=== PATIENT | male | born 1945 | race Caucasian/White ===

== ENCOUNTER 2016-10-06 11:11 | Emergency (ER) | payer MEDICARE, BC ==
[2016-10-06 12:20] VITALS: BP 152/63
--- NOTE | 2016-10-06 13:38 | UC ---
Respiratory Complaint HPI - HPI Summary HPI Summary: 71 Y/O male with C/O cough / congestion / dyspnea with exertion. Denies CP, diaphoresis, or nausea. Has been taking mucinex and using neb treatments. medications have been reviewed on this visit. - History of Current Complaint Chief Complaint: UCRespiratory Stated Complaint: COUGH ONGOING,CONGESTION Time Seen by Provider: 10/06/16 13:16 Hx Obtained From: Patient Onset/Duration: Gradual Onset, Lasting Weeks Timing: Constant Severity Initially: Mild Severity Currently: Moderate Pain Intensity: 0 Pain Scale Used: 0-10 Numeric Character: Cough: Productive Aggravating Factors: Exertion Alleviating Factors: Bronchodilator Associated Signs And Symptoms: Positive: Dyspnea, Fever - Risk Factors Pulmonary Embolism Risk Factors: Negative Cardiac Risk Factors: Smoking Pseudomonas Risk Factors: Chronic Lung Disease Tuberculosis Risk Factors: Negative - Allergies/Home Medications Allergies/Adverse Reactions: Allergies Allergy/AdvReac Type Severity Reaction Status Date / Time Latex Allergy Rash Verified 10/06/16 12:20 Home Medications: Home Medications Albuterol HFA INHALER* [Ventolin HFA Inhaler*] 2 puff INH Q4HR PRN 10/06/16 [ History Confirmed 10/06/16] Diphenhydramine HCl [Benadryl Allergy 25 MG CAP] 2 tab PO BEDTIME 10/06/16 [ History Confirmed 10/06/16] Fluticasone NASAL * [Flonase *] 1 spray NASAL DAILY 10/06/16 [History Confirmed 10/06/16] Multiple Vitamins W/ Minerals [Preservision Areds 2 + Mu] 1 tab PO BID 10/06/16 [History Confirmed 10/06/16] guaiFENesin ER TAB [Mucinex*] 1 tab PO BID 10/06/16 [History Confirmed 10/06/16] PMH/Surg Hx/FS Hx/Imm Hx Cardiovascular History Of: Reports: Hypertension Denies: Pacemaker/ICD Respiratory History Of: Reports: COPD, Asthma GI/ History Of: Reports: Kidney Stones - HX OF Psychological History Of: Reports: Anxiety - Surgical History Surgical History: None Surgery Procedure, Year, and Place: LITHOTRIPSY 2004 [facility] - Social History Alcohol Use: Rare Substance Use Type: None Smoking Status (MU): Former Smoker Length of Time of Smoking/Using Tobacco: 40 YRS Have You Smoked in the Last Year: No When Did the Patient Quit Smoking/Using Tobacco: 2004 Review of Systems Constitutional: Fever Skin: Negative Eyes: Negative ENT: Negative Respiratory: Shortness Of Breath, Cough Cardiovascular: Negative Gastrointestinal: Negative Genitourinary: Negative Motor: Negative Neurovascular: Negative Musculoskeletal: Negative Neurological: Negative Psychological: Negative All Other Systems Reviewed And Are Negative: Yes Physical Exam Triage Information Reviewed: Yes Appearance: Well-Appearing Vital Signs: Initial Vital Signs Temp 98.4 F 10/06/16 12:15 Pulse 89 10/06/16 12:15 Resp 18 10/06/16 12:15 BP 152/63 10/06/16 12:15 Pulse Ox 94 10/06/16 12:15 Vital Signs Reviewed: Yes Eye Exam: Normal ENT Exam: Normal Neck exam: Normal Neck: Positive: Nontender Respiratory Exam: Other Respiratory: Positive: Rhonchi Cardiovascular Exam: Normal Cardiovascular: Positive: RRR Abdominal Exam: Normal Abdomen Description: Positive: Nontender, Soft Bowel Sounds: Positive: Present Musculoskeletal Exam: Normal Neurological Exam: Normal Neurological: Positive: Alert Psychological Exam: Normal Skin Exam: Normal UC Diagnostic Evaluation - Laboratory O2 Sat by Pulse Oximetry: 94 Respiratory Course/Dx - Differential Dx/Diagnosis Differential Diagnosis/HQI/PQRI: Exacerbation Of COPD, Lower Resp Infection Provider Diagnoses: COPD Exacerbation Discharge - Discharge Plan Condition: Stable Disposition: HOME Patient Education Materials: COPD (Chronic Obstructive Pulmonary Disease) (ED) , Chronic Lung Disease and Infection Prevention (ED) Referrals: Bertin Estrada DO [Primary Care Provider] - Estelita HOLDER,Julio Schrader [Medical Doctor] - Additional Instructions: Please take prednisone as directed. If symptoms do not improve with medication or have fevers, increasing shortness of breath return to walk in or ER. 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
--- NOTE | 2016-10-06 13:59 | RAD ---
INDICATION: Cough and congestion COMPARISON: October 11, 2014 TECHNIQUE: PA and lateral dual-energy views were obtained. FINDINGS: Bones/Soft Tissues: There are no acute bony findings. There are multiple old right-sided rib fractures Cardiomediastinal: The cardiomediastinal silhouette is normal. Lungs: There are no focal infiltrates. There is mild coarsening of the interstitium compatible with mild chronic change. Pleura: There are no pleural effusions. Other: None IMPRESSION: NO ACTIVE DISEASE.
== END 2016-10-06 14:39 | disposition home or self-care (01) ==
LOC: UCEAST 11:11
DX: J44.1 Chronic obstructive pulmonary disease with (acute) exacerbation (principal); Z87.891 Personal history of nicotine dependence
CPT/HCPCS: 71020; 99212; G0463

== ENCOUNTER 2017-06-07 11:11 | Emergency (ER) | payer MEDICARE, BC ==
[2017-06-07 12:11] VITALS: BP 151/60
[2017-06-07] MEDS ORDERED: Albuterol 2.5 MG/3 ML NEB.SOL* (0.083%) INH ONE (13:07)
[2017-06-07] MEDS ORDERED: predniSONE TAB* 20 MG PO ONE (13:08)
--- NOTE | 2017-06-07 13:25 | UC ---
Respiratory Complaint HPI - HPI Summary HPI Summary: c/o wheezing, cough with discolored phlegm and fever for the past 6 days. Also states he has poor apetite since onset of symptoms with scant loose stools. Denies vomiting. - History of Current Complaint Chief Complaint: UCRespiratory Stated Complaint: COUGH, FEVER Time Seen by Provider: 06/07/17 12:52 Hx Obtained From: Patient Onset/Duration: Gradual Onset Timing: Constant Severity Initially: Mild Severity Currently: Moderate Character: Cough: Productive, Sputum Description: - pauluy Alleviating Factors: Bronchodilator Associated Signs And Symptoms: Positive: Wheezing - Risk Factors Pulmonary Embolism Risk Factors: Negative Cardiac Risk Factors: Negative Pseudomonas Risk Factors: Negative Tuberculosis Risk Factors: Negative - Allergies/Home Medications Allergies/Adverse Reactions: Allergies Allergy/AdvReac Type Severity Reaction Status Date / Time Latex Allergy Rash Verified 10/06/16 12:20 Home Medications: Home Medications Albuterol 2.5MG/3ML (0.083%)* [Ventolin 2.5 MG/3 ML NEB.BUFFY*] 2.5 mg INH Q4H [History Confirmed 06/07/17] Fluticasone Furoate-Vilanterol [Breo Ellipta 200-25 Mcg/INH] 1 inh IN 06/07/17 [ History] PMH/Surg Hx/FS Hx/Imm Hx Previously Healthy: Yes Endocrine History: Dyslipidemia Respiratory History: COPD, Asthma - Surgical History Surgical History: None Surgery Procedure, Year, and Place: LITHOTRIPSY 2004 [facility] - Social History Alcohol Use: Rare Substance Use Type: None Smoking Status (MU): Former Smoker Length of Time of Smoking/Using Tobacco: 40 YRS Have You Smoked in the Last Year: No When Did the Patient Quit Smoking/Using Tobacco: 2004 Review of Systems Constitutional: Fever Respiratory: Shortness Of Breath, Cough All Other Systems Reviewed And Are Negative: Yes Physical Exam Triage Information Reviewed: Yes Appearance: Ill-Appearing Vital Signs: Initial Vital Signs Temp 101.0 F 06/07/17 12:04 Pulse 116 06/07/17 12:04 Resp 22 06/07/17 12:04 BP 151/60 06/07/17 12:04 Pulse Ox 85 06/07/17 12:04 Vital Signs Reviewed: Yes Eye Exam: Normal ENT Exam: Normal Neck exam: Normal Respiratory: Positive: Rhonchi, Wheezing Cardiovascular Exam: Normal Abdominal Exam: Normal Musculoskeletal: Positive: No Edema Diagnostic Evaluation - Laboratory O2 Sat by Pulse Oximetry: 85 Respiratory Course/Dx - Course Course Of Treatment: nebulization with albuterol 2.5cc 0.083% and prednisone 60mg po x1 at improved symptoms. COntinue medications as prescribed, start antibiotic for 10 days and f/u with PCP - Differential Dx/Diagnosis Provider Diagnoses: COPD/asthma. Acute Bronchitis Discharge - Discharge Plan Condition: Stable Disposition: HOME Patient Education Materials: Wheezing (ED), Acute Bronchitis (ED) Referrals: Bertin Estrada DO [Primary Care Provider] -
== END 2017-06-07 13:54 | disposition home or self-care (01) ==
LOC: UCEAST 11:11
DX: J44.9 Chronic obstructive pulmonary disease, unspecified (principal); J20.9 Acute bronchitis, unspecified; Z91.040 Latex allergy status; E78.5 Hyperlipidemia, unspecified; Z87.891 Personal history of nicotine dependence
CPT/HCPCS: 99212; G0463; J7512

== ENCOUNTER 2019-04-09 05:49 | Day surgery (SDC) | payer MEDICARE, BC ==
[~2019-04-09 05:49] MED LIST: Buffered Lidocaine 1% SYRIN* 1 ML/SYRINGE INTRADERM ONE
[2019-04-09] MEDS ORDERED: Acetaminophen TAB* 325 MG PO ONE (06:00)
[2019-04-09] MEDS ORDERED: Lactated Ringers 1000 ML Bag* 1,000 ML IV SCH (06:00)
[2019-04-09] MEDS ORDERED: Famotidine IV* 10 MG/ML 2 ML (20 mg) IV ONE (06:00)
[2019-04-09] MEDS ORDERED: ceFAZolin 2 GM in NS PREMIX(*) 2 GM/100 ML BAG IVPB ONE (06:03)
[2019-04-09] MEDS ORDERED: Acetaminophen TAB* 325 MG ONE (06:03)
[2019-04-09] MEDS ORDERED: Famotidine IV* 10 MG/ML 2 ML (20 mg) ONE (06:03)
[2019-04-09] MEDS ORDERED: Bupivacaine 0.25% SDV PF* 10 ML VIAL INJ ONE (07:10)
[2019-04-09] MEDS ORDERED: fentaNYL* 50 MCG/ML 2 ML VIAL (100 MCG VIAL) ONE (07:25)
[2019-04-09] MEDS ORDERED: Midazolam* 1 MG/ML 2 ML VIAL (2 MG) ONE (07:25)
[2019-04-09] MEDS ORDERED: Lidocaine 1% INJ* 10 MG/ML 30 ML SDV ONE (07:30)
[2019-04-09] MEDS ORDERED: Ketorolac INJ* 30 MG/ML 1 ML VIAL ONE (07:39)
[2019-04-09] MEDS ORDERED: Ondansetron INJ* 2 MG/ML VIAL ONE (07:39)
[2019-04-09] MEDS ORDERED: Lidocaine 2% PF * 5 ML VIAL ONE (07:39)
[2019-04-09] MEDS ORDERED: Propofol* 10 MG/ML 20 ML BTL ONE ×2 (07:39)
[2019-04-09] MEDS ORDERED: KETAMINE HCL* 50 MG/ML 10 ML VIAL ONE (07:40)
[2019-04-09] MEDS ORDERED: HYDROcodone/ACETAMIN 5-325 MG* 1 TAB PO PRN (08:08)
[2019-04-09] MEDS ORDERED: Levalbuterol 0.63MG/3ML NEB* UNIT OF USE INH PRN (08:08)
[2019-04-09] MEDS ORDERED: Ondansetron INJ* 2 MG/ML VIAL IV PRN (08:08)
[2019-04-09] MEDS ORDERED: Naloxone* 0.4 MG/ML 1 ML VIAL IV PRN (08:08)
[2019-04-09] MEDS ORDERED: DiMENhydriNATE IV* 50 MG/ML VIAL IV PUSH PRN (08:08)
[2019-04-09] MEDS ORDERED: fentaNYL* 50 MCG/ML 2 ML VIAL (100 MCG VIAL) IV PRN (08:08)
--- NOTE | 2019-04-09 08:33 | OP ---
Operative Report - Blank - Operative Report Date of Operation: 04/09/19 Note: OPERATIVE REPORT Pre-op: Left axillary lymphadenopthy Post-Op: Same Procedure:Excisional biopsy fo left axillary lymph node Surgeon: MD Red Asst: none Anes: MAC/local with Dr. Ryder IVF:min EBL:min Specimen: Left axillary lymph node sent fresh to pathology Drain: none Wound: 1 Findings: Enlarge node left axilla To PACU
[2019-04-09 09:31] VITALS: BP 134/63
--- NOTE | 2019-04-09 21:02 | OP ---
CC: Dr. Hari Chow * DATE OF OPERATION: 04/09/19 - [facility] DATE OF : 45 SURGEON: Scott Moon MD. MIXER WET POUR: None. ANESTHESIOLOGIST: Dr. Ryder. ANESTHESIA: Local with monitored anesthesia care. PRE-OP DIAGNOSIS: Left axillary adenopathy. POST-OP DIAGNOSIS: Left axillary adenopathy. OPERATIVE PROCEDURE: Excisional biopsy of left axillary lymph node. ESTIMATED BLOOD LOSS: Minimal. WOULD CLASSIFICATION: I. COMPLICATIONS: None. DRAINS: None. SPECIMEN: Lymph node from the left axilla sent to Pathology in fresh saline. BRIEF HISTORY: Mr. Feng Gibson is a 73-year-old gentleman with bilateral axillary lymphadenopathy and an abnormal PET scan and with a lesion in the right upper lobe of the lung. An excisional biopsy for tissue diagnosis from the palpable left axillary lymph node has been requested. DESCRIPTION OF PROCEDURE: Written informed consent was obtained, the left axilla was marked with indelible ink and preoperative antibiotics were administered. The patient was taken to the operating room and placed in supine position. Sequential compression devices were applied. The left axilla, chest and arm were prepped and draped in the usual sterile fashion. Time-out verification was completed. 1% lidocaine with epinephrine was then infiltrated in the left axilla just at the lower level of the hairline. A transverse incision was made just at the inferior part of the hairline, carried down through the subcutaneous fat and clavipectoral fascia. There was a palpable lymph node which was identified and grasped and brought up into field and using a combination of sharp and electrocautery dissection, the entire lymph node was removed. This did not involve any nerve structures and was very superficial to the great vessels. The specimen was retrieved and sent to Pathology in fresh state. Hemostasis was assured. Additional Marcaine was infiltrated. The wound was closed in layers with 3-0 and 4-0 Vicryl suture. Steri-Strips and sterile dressings were applied. The patient tolerated the procedure well, was taken to recovery room in stable condition. [id number]/[facility] #: [id number] [facility]
== END 2019-04-09 09:20 | disposition home or self-care (01) ==
LOC: OR 05:49
PROVIDERS: ATTEND Surgery
DX: R59.0 Localized enlarged lymph nodes (principal); I10 Essential (primary) hypertension; J43.9 Emphysema, unspecified; Z87.891 Personal history of nicotine dependence; R91.1 Solitary pulmonary nodule
CPT/HCPCS: 88184; 88187; 88188; 88189; 88305; 88333; 88341; 88342; 88360; A9270-GY; J0690; J1885; J2250; J2405; J2704; J3010; J3490

== ENCOUNTER 2022-01-08 15:45 | Inpatient (IN) ==
[2022-01-08] MEDS ORDERED: Dexamethasone IV 4 MG/ML VIAL 1 ml VIAL IV SLOW PU SCH (17:00)
[2022-01-08] MEDS ORDERED: Immune Globulin IV Order (CPOE ENTRY PROTOCOL) IV SCH (17:00)
[2022-01-08 17:03] LABS: ABS Basophils 0.1 10^3/ul (0-0.2); ABS Eosinophils 0.6 10^3/ul (0-0.6); ABS Lymphocytes 1.5 10^3/ul (1.0-4.8); ABS Monocytes 0.6 10^3/ul (0-0.8); ABS Neutrophils 6.4 10^3/ul (1.5-7.7); Eosinophil % 6.2 %; Hematocrit 40 % (42-52); Hemoglobin 13.4 g/dL (14.0-18.0); Lymphocyte % 16.8 %; Mean Corpuscular HGB Conc 33 g/dL (31-36); Mean Corpuscular Hemoglobin 31 pg (27-31); Mean Corpuscular Volume 93 fL (80-94); Mean Platelet Volume 11.9 fL (7.4-10.4); Red Blood Count 4.33 10^6 /uL (4.18-5.48); Red Cell Distribution Width 14 % (10-15); White Blood Count 9.2 10^3/uL (3.5-10.8)
[2022-01-08 17:04] LABS: Platelet Count 2 10^3/uL (150-450)
[2022-01-08] MEDS ORDERED: Albuterol HFA INHALER 8 gm MDI INH PRN (17:22)
[2022-01-08] MEDS ORDERED: Dexamethasone IV 40 MG in NS 0.9% 50 ML 50 ML IVPB SCH (18:30)
[2022-01-08] MEDS: [UNRECOGNIZED DRUG - OTHER] IV SCH (21:30)
[2022-01-08] MEDS: PRIVIGEN IV SCH (21:30)
[2022-01-08] MEDS: IMMUNE GLOB IV SCH (21:30)
[2022-01-09 05:33] LABS: ABS Lymphocytes 0.4 10^3/ul (1.0-4.8); ABS Neutrophils 3.3 10^3/ul (1.5-7.7); Eosinophil % 0.1 %; Hematocrit 39 % (42-52); Hemoglobin 13.1 g/dL (14.0-18.0); Lymphocyte % 10.4 %; Mean Corpuscular HGB Conc 34 g/dL (31-36); Mean Corpuscular Hemoglobin 31 pg (27-31); Mean Corpuscular Volume 93 fL (80-94); Mean Platelet Volume 11.9 fL (7.4-10.4); Platelet Count 4 10^3/uL (150-450); Red Blood Count 4.19 10^6 /uL (4.18-5.48); Red Cell Distribution Width 14 % (10-15); White Blood Count 3.7 10^3/uL (3.5-10.8)
[2022-01-09 05:48] LABS: Albumin 4.2 g/dL (3.2-5.2); Albumin/Globulin Ratio 1.2 (1-3); Calcium 9.2 mg/dL (8.6-10.3); Globulin 3.5 g/dL (2-4); Potassium 4.3 mmol/L (3.5-5.0); Total Bilirubin 0.8 mg/dL (0.2-1.0); Total Protein 7.7 g/dL (6.4-8.9); eGFR CKD-EPI 89.4 (>60)
[2022-01-09] MEDS: Mometasone/Formoter 200/5 MDI INH SCH ×2 (07:45→17:36)
[2022-01-09] MEDS: CMCS: Roflumilast 500 mcg TAB (NF) PO SCH (08:38)
[2022-01-09] MEDS: Fluticasone NASAL SPRAY 50MCG 16 gm SPRAY BTL BOTH NARES SCH (08:40)
[2022-01-09] MEDS ORDERED: Iohexol 350 (CONTRAST) 500 ML MDV IV ONE (11:03)
[2022-01-09] MEDS: Dexamethasone IV 40 MG in NS 0.9% 50 ML 50 ML IVPB SCH (12:25)
[2022-01-09] MEDS: [UNRECOGNIZED DRUG - OTHER] IV SCH (14:36)
[2022-01-09] MEDS: IMMUNE GLOB IV SCH (14:36)
[2022-01-09] MEDS: PRIVIGEN IV SCH (14:36)
[2022-01-10 05:40] LABS: ABS Lymphocytes 0.7 10^3/ul (1.0-4.8); ABS Monocytes 0.6 10^3/ul (0-0.8); ABS Neutrophils 11.5 10^3/ul (1.5-7.7); Hematocrit 39 % (42-52); Hemoglobin 12.7 g/dL (14.0-18.0); Lymphocyte % 5.3 %; Mean Corpuscular HGB Conc 33 g/dL (31-36); Mean Corpuscular Hemoglobin 31 pg (27-31); Mean Corpuscular Volume 93 fL (80-94); Mean Platelet Volume 10.2 fL (7.4-10.4); Nucleated Red Blood Cells % 0.1; Platelet Count 8 10^3/uL (150-450); Red Blood Count 4.15 10^6 /uL (4.18-5.48); Red Cell Distribution Width 14 % (10-15); White Blood Count 12.8 10^3/uL (3.5-10.8)
[2022-01-10 05:54] LABS: Albumin 3.7 g/dL (3.2-5.2); Albumin/Globulin Ratio 0.9 (1-3); Globulin 3.9 g/dL (2-4); Potassium 4.4 mmol/L (3.5-5.0); Total Bilirubin 0.5 mg/dL (0.2-1.0); Total Protein 7.6 g/dL (6.4-8.9)
[2022-01-10] MEDS: Mometasone/Formoter 200/5 MDI INH SCH ×2 (07:50→18:41)
[2022-01-10] MEDS: CMCS: Roflumilast 500 mcg TAB (NF) PO SCH (09:03)
[2022-01-10] MEDS: Fluticasone NASAL SPRAY 50MCG 16 gm SPRAY BTL BOTH NARES SCH (09:04)
[2022-01-10] MEDS: Dexamethasone IV 40 MG in NS 0.9% 50 ML 50 ML IVPB SCH (13:17)
[2022-01-11 05:46] LABS: ABS Lymphocytes 0.6 10^3/ul (1.0-4.8); ABS Monocytes 0.4 10^3/ul (0-0.8); ABS Neutrophils 9.1 10^3/ul (1.5-7.7); Hematocrit 38 % (42-52); Hemoglobin 12.6 g/dL (14.0-18.0); Mean Corpuscular HGB Conc 33 g/dL (31-36); Mean Corpuscular Hemoglobin 31 pg (27-31); Mean Corpuscular Volume 93 fL (80-94); Mean Platelet Volume 10.5 fL (7.4-10.4); Platelet Count 9 10^3/uL (150-450); Red Cell Distribution Width 14 % (10-15); White Blood Count 10.1 10^3/uL (3.5-10.8)
[2022-01-11 05:57] LABS: Albumin 3.6 g/dL (3.2-5.2); Albumin/Globulin Ratio 0.9 (1-3); Calcium 8.6 mg/dL (8.6-10.3); Globulin 3.8 g/dL (2-4); Potassium 4.3 mmol/L (3.5-5.0); Total Bilirubin 0.5 mg/dL (0.2-1.0); Total Protein 7.4 g/dL (6.4-8.9); eGFR CKD-EPI 90.7 (>60)
[2022-01-11] MEDS: Mometasone/Formoter 200/5 MDI INH SCH ×2 (07:07→19:07)
[2022-01-11] MEDS: CMCS: Roflumilast 500 mcg TAB (NF) PO SCH (08:03)
[2022-01-11] MEDS: Fluticasone NASAL SPRAY 50MCG 16 gm SPRAY BTL BOTH NARES SCH (08:03)
[2022-01-11] MEDS: Dexamethasone IV 40 MG in NS 0.9% 50 ML 50 ML IVPB SCH (13:46)
[2022-01-12 07:30] VITALS: BP 148/74
[2022-01-12] MEDS: Mometasone/Formoter 200/5 MDI INH SCH (07:31)
[2022-01-12] MEDS: CMCS: Roflumilast 500 mcg TAB (NF) PO SCH (08:33)
[2022-01-12] MEDS: Fluticasone NASAL SPRAY 50MCG 16 gm SPRAY BTL BOTH NARES SCH (08:35)
[2022-01-12 08:40] LABS: ABS Lymphocytes 0.9 10^3/ul (1.0-4.8); ABS Monocytes 0.6 10^3/ul (0-0.8); Hematocrit 41 % (42-52); Hemoglobin 13.6 g/dL (14.0-18.0); Lymphocyte % 8.3 %; Mean Corpuscular HGB Conc 33 g/dL (31-36); Mean Corpuscular Hemoglobin 31 pg (27-31); Mean Corpuscular Volume 92 fL (80-94); Mean Platelet Volume 10.5 fL (7.4-10.4); Platelet Count 13 10^3/uL (150-450); Red Blood Count 4.41 10^6 /uL (4.18-5.48); Red Cell Distribution Width 14 % (10-15); White Blood Count 10.5 10^3/uL (3.5-10.8)
[2022-01-12 09:32] LABS: Albumin/Globulin Ratio 1.1 (1-3); Globulin 3.8 g/dL (2-4); Potassium 4.3 mmol/L (3.5-5.0); Total Bilirubin 0.7 mg/dL (0.2-1.0); Total Protein 7.8 g/dL (6.4-8.9); eGFR CKD-EPI 90.7 (>60)
== END 2022-01-12 13:12 | disposition home or self-care (01) | DRG 813 ==
LOC: CHOA 15:45 → MED 17:41
PROVIDERS: ADMIT Internal Medicine Hematology & Oncology; ATTEND Internal Medicine Hematology & Oncology